=== PATIENT | female | born 1960 | race Caucasian/White ===

== ENCOUNTER → 2018-05-25 20:46 | Outpatient (REF) | payer OTHER, SELFPAY ==
[2018-05-25 21:25] LABS: Anion Gap 9.3 mmol/L (3-11); BUN 11 mg/dL (7-18); CO2 27.7 mmol/L (21.0-32.0); CREATININE 0.55 mg/dL (0.55-1.02); Calcium 8.6 mg/dL (8.5-10.1); Chloride 108 mmol/L (98-107); Glucose 98 mg/dL (70-100); Potassium 4.1 mmol/L (3.5-5.1); Sodium 145 mmol/L (136-145); TSH (W/Ref FT4) 3.35 uIU/mL (0.358-3.74)
== END ==
LOC: NCHCN 20:46
PROVIDERS: PCP Nurse Practitioner Family; Visit Provider Family Medicine
DX: E87.6 Hypokalemia (principal); R53.83 Other fatigue
CPT/HCPCS: 80048; 84443

== ENCOUNTER 2018-07-09 17:50 | Outpatient (REF) | payer OTHER, SELFPAY ==
[2018-07-09 22:47] LABS: Abs Immature Grans 0.01 k/cumm (0.0-0.09); Absolute Basophil Count 0.02 k/cumm (0.0-0.2); Absolute Eosinophil Count 0.38 k/cumm (0.0-0.7); Absolute Lymphocyte Count 1.89 k/cumm (1.2-3.4); Absolute Monocyte Count 0.44 k/cumm (0.11-0.7); Basophils % 0.3; Eosinophils % 6.6; HCT 38.7 % (36.0-46.0); HGB 12.8 g/dL (12.0-15.5); Immature Grans % 0.2; Lymphocytes % 32.9; Mean Corp. HGB Concentration 33.1 g/dL (32.0-36.0); Mean Corpuscular Hemoglobin 30.2 pg (27.0-33.0); Mean Corpuscular Volume 91.3 fL (80-95); Mean Platelet Volume 10.5 fL (8.0-11.0); Monocytes % 7.7; Neutrophils % 52.3; Platelet Count 285 x1000/uL (130-400); RBC 4.24 m/cumm (4.00-5.20); RBC Distribution Width 12.7 % (11.7-14.6); White Blood Cell Count 5.74 k/cumm (4.4-10.8)
[2018-07-09 22:56] LABS: Iron 44 ug/dL (50-175); Total Iron Binding Capacity 358 ug/dL (250-450); Transferrin Sat 12 % (15-50)
[2018-07-09 23:09] LABS: Cholesterol 277 mg/dL (50-200); Ferritin 125 ng/mL (8-388); HDL Cholesterol 77 mg/dL (40-60); LDL CHOLESTEROL 172 mg/dL (<100); Triglyceride 109 mg/dL (30-150)
[2018-07-09 23:31] LABS: FREE T4 0.77 ng/dL (0.76-1.46)
[2018-07-11 12:42] LABS: Hepatitis C Ab w Rflx HCV PCR Negative (NEGAT)
== END 2018-07-09 18:10 ==
LOC: NCHCN 17:50
PROVIDERS: PCP Nurse Practitioner Family; Visit Provider Nurse Practitioner Family
DX: Z00.00 Encounter for general adult medical examination without abnormal findings (principal); E78.5 Hyperlipidemia, unspecified; F41.8 Other specified anxiety disorders; G47.00 Insomnia, unspecified; G47.62 Sleep related leg cramps; J02.9 Acute pharyngitis, unspecified; R53.83 Other fatigue; Z11.59 Encounter for screening for other viral diseases; Z01.84 Encounter for antibody response examination
CPT/HCPCS: 80061; 83721; 86803; 82728; 83540; 83550; 84439; 84443; 85025

== ENCOUNTER 2018-09-24 16:31 | Outpatient (REF) | payer OTHER, SELFPAY ==
[2018-09-24 22:31] LABS: Iron 70 ug/dL (50-175)
[2018-09-24 22:44] LABS: TSH (W/Ref FT4) 4.27 uIU/mL (0.358-3.74)
[2018-09-24 23:23] LABS: FREE T4 0.92 ng/dL (0.76-1.46)
== END 2018-09-24 16:51 ==
LOC: NCHCN 16:31
PROVIDERS: PCP Nurse Practitioner Family; Visit Provider Nurse Practitioner Family
DX: E03.9 Hypothyroidism, unspecified (principal); E61.1 Iron deficiency; M54.16 Radiculopathy, lumbar region
CPT/HCPCS: 83540; 84439; 84443

== ENCOUNTER 2018-11-13 02:21 | Emergency (ER) | payer OTHER, SELFPAY ==
[2018-11-13 02:23] VITALS: BP 112/62; PULSE 70; RESP 22; TEMP 36.3; O2SAT 97
--- NOTE | 2018-11-13 02:44 | ED.GENADUL_ITS ---
Discharge Plan Disposition Patient Disposition: HOME Condition: Good Discharge Details Chief Complaint: RespSymp Clinical Impression: Walking pneumonia Primary Care Provider: Hilary Reeder ED Provider: Taj Flynn Home Meds and New Rx's Prescriptions: New azithromycin 250 mg tablet 250 mg PO DAILY 4 Days Qty: 4 RF: 0 benzonatate [Tessalon Perles] 100 mg capsule 100 mg PO TID PRN (Reason: cough) Qty: 20 RF: 0 prednisone 50 mg tablet 50 mg PO DAILY Qty: 4 RF: 0 No Action OneTouch Ultra Test 1 EACH strip 1 ea Miscellaneous RF: 0 ProAir HFA 8.5 GM HFA aerosol inhaler 1 - 2 puff Inhalation Q4H PRN RF: 0 hydrochlorothiazide 25 MG tablet 50 mg PO DAILY RF: 0 Discharge Instructions Instructions: Bacterial Pneumonia (ED) Additional Instructions: Please take medications as directed. Please use your inhaler every 4 hours for the next 48 hours. If you notice any worsening of your symptoms, or any new symptoms such as vomiting, diarrhea, fever, chills, shortness of breath, chest pain, numbness, weakness, or fainting , please return immediately to the emergency department for reevaluation. Please follow up with your primary care provider as soon as possible for reassessment and reevaluation. As always, it was a pleasure participating in your medical care today. Referrals: Hilary Reeder [Primary Care Provider] - Medical Decision Making This is a pleasant 58-year-old female who presents with 5 days of cough that is worsening. She had notable coughing episode tonight which seemed to significantly worsen her symptoms. Cough is worse when lying flat, improved by sitting upright. Cough is nonproductive. She denies any fever, chills, significant shortness of breath, chest pain. Physical exam demonstrates notable crackles in the right lower lung vick. No evidence of wheezes or rhonchi. Vital signs are reassuring with no signs of hypoxemia or tachypnea. No other abnormalities on physical exam. The patient's risk factors of asthma, and with her past auscultated lung findings am concerned for walking pneumonia. We will give the first dose of azithromycin here as well as prednisone and Tessalon Perles. She will be sent home with 1 Tessalon Perle for the evening, and a prescription to be filled in the morning. Patient signs and symptoms are clinic ally inconsistent at this time with pneumothorax, PE, or cardiac etiology. I have extensively reviewed the treatment plan and discharge instructions with the patient. I have addressed all patient concerns at this time. The patient was made aware of what symptoms to monitor for that would warrant a return to the emergency department. Discussed the plan with the patient, they demonstrate verbal understanding and agreement with our assessment and plan at this time. HPI General Date/Time Provider Initiated Documentation: 11/13/18 02:31 . HPI Narrative: This is a 58-year-old female with a past medical history of asthma, who presents today for evaluation of cough. Cough is been present for the last 5 days. She describes it is nonproductive. Notably worsening over the last 12- 24 hours. She denies any chest pain or shortness of breath. Cough is worse when she lies down, improved by nothing. She has been taking NyQuil and DayQuil with no significant improvement. She does admit to mild fatigue, but denies any exertional chest pain, neck pain, shoulder pain, hemoptysis, fever or chills. She has been taking her inhaler but this is not been improving her symptoms. She denies any other modifying factors. She has no other complaints at this time. Denies PE risk factors such as recent long car rides, immobilization, recent surgery, prior history of DVT or PE, family history of PE or DVT, morbid obesity, exogenous estrogen and smoking, hemoptysis, history of cancer. She denies any history of current tobacco abuse, cardiac disease, or pneumothorax. Related Data Home Medications Medication Instructions Recorded Confirmed OneTouch Ultra Test strip 09/05/16 11/07/18 ProAir HFA 1 - 2 puff INHALATION Q4H PRN 09/05/16 11/13/18 inhaler hydrochlorothiazide 50 mg PO DAILY tab-cap 09/05/16 11/13/18 azithromycin 250 mg PO DAILY 4 Days #4 tab 11/13/18 benzonatate [Tessalon Perles] 100 mg PO TID PRN #20 cap 11/13/18 prednisone 50 mg PO DAILY #4 tab 11/13/18 Previous Rx's Medication Instructions Recorded azithromycin 250 mg PO DAILY 4 Days #4 tab 11/13/18 benzonatate [Tessalon Perles] 100 mg PO TID PRN #20 cap 11/13/18 prednisone 50 mg PO DAILY #4 tab 11/13/18 Allergies Allergy/AdvReac Type Severity Reaction Status Date / Time Penicillins Allergy Unverified 11/07/18 09:38 General Stated Complaint: RespSymp ERLINDA: 4 Review of Systems Review of Systems All systems reviewed & are unremarkable except as noted in HPI and below PFSH Surgical History section Kidney Stone Extraction Vaginal hysterectomy Social History Smoking/Tobacco Use Status: Never Exam Narrative Exam Narrative: 1.Const: Well-nourished, Well-developed, appearing stated age 2.Eyes: PERRL, no conjunctival injection, and symmetrical lids. 3.ENT: Atraumatic external nose and ears. Moist MM. Neck: Symmetric, trachea midline, No thyromegaly. 4.CVS: +S1/S2, No murmurs or gallops. Peripheral pulses 2+ and equal in all extremities. Brisk capillary refill in all extremities. 5.RESP: Unlabored respiratory effort. Notable crackles in the right lower and right middle lobes. No wheezes or rhonchi 6.GI: Soft, Nontender/Nondistended, No hepatosplenomegaly. No guarding or rebound. 7.MSK: Normocephalic/Atraumatic, Extremities w/o deformity or ttp No cyanosis or clubbing, Normal movement of all extremities 8.Skin: Warm, Dry. No rashes or lesions. 9.Neuro: data virtualization consultant II-XII grossly intact. Sensation grossly intact, no focal neurologic deficits. 10.Psych: (AAO) x3. Appropriate mood and affect Course Vital Signs Temperature 36.3 C L 11/13/18 02:23 Pulse 70 11/13/18 02:23 Respiratory Rate 22 11/13/18 02:23 Blood Pressure 112/62 11/13/18 02:23 Pulse Oximetry 97 11/13/18 02:23 Temperature 36.3 C L 11/13/18 02:23 Temperature Source Skin 11/13/18 02:23 Pulse 70 11/13/18 02:23 Respiratory Rate 22 11/13/18 02:23 Respiratory Effort Non-Labored 11/13/18 02:26 Blood Pressure 112/62 11/13/18 02:23 Blood Pressure Position Sitting 11/13/18 02:23 Pulse Oximetry 97 11/13/18 02:23 Oxygen Delivery Method Room Air 11/13/18 02:23 Oxygen Flow Rate 0 11/13/18 02:23 Pain Level 6 11/13/18 02:23
[2018-11-13] MEDS: Benzonatate 100 MG CAP PO ×2 (02:50)
[2018-11-13] MEDS: Azithromycin 250 MG TAB 500 MG PO (02:50)
== END 2018-11-13 02:55 | disposition home or self-care (01) ==
LOC: ER 03:01
PROVIDERS: Emergency Provider Student in an Organized Health Care Education/Training Program; PCP Nurse Practitioner Family
DX: J18.9 Pneumonia, unspecified organism (principal)
CPT/HCPCS: 99283; J7512

== ENCOUNTER 2019-01-01 07:05 | Outpatient (CLI) | payer OTHER, SELFPAY ==
[2019-01-01 07:37] LABS: Absolute Basophil Count 0.02 k/cumm (0.0-0.2); Absolute Eosinophil Count 0.23 k/cumm (0.0-0.7); Absolute Lymphocyte Count 1.24 k/cumm (1.2-3.4); Absolute Monocyte Count 0.33 k/cumm (0.11-0.7); Absolute Neutrophil Count 0.96 k/cumm (1.2-6.7); Basophils % 0.7; Eosinophils % 8.3; HCT 37.2 % (36.0-46.0); Lymphocytes % 44.6; Mean Corp. HGB Concentration 32.3 g/dL (32.0-36.0); Mean Corpuscular Hemoglobin 29.9 pg (27.0-33.0); Mean Corpuscular Volume 92.8 fL (80-95); Mean Platelet Volume 10.3 fL (8.0-11.0); Monocytes % 11.9; Neutrophils % 34.5; Platelet Count 209 x1000/uL (130-400); RBC 4.01 m/cumm (4.00-5.20); RBC Distribution Width 12.9 % (11.7-14.6); White Blood Cell Count 2.78 k/cumm (4.4-10.8)
[2019-01-01 07:43] LABS: Anion Gap 7.6 mmol/L (3-11); BUN 22 mg/dL (7-18); CO2 29.4 mmol/L (21.0-32.0); CREATININE 0.63 mg/dL (0.55-1.02); Calcium 8.5 mg/dL (8.5-10.1); Chloride 104 mmol/L (98-107); Glucose 105 mg/dL (70-100); Magnesium 1.9 mg/dL (1.8-2.4); Potassium 4.1 mmol/L (3.5-5.1); Sodium 141 mmol/L (136-145)
[2019-01-01 07:53] LABS: Troponin I < 0.02 ng/mL (0.00-0.06)
[2019-01-01 08:16] LABS: D-Dimer 329 ng/mlFEU (<500)
[2019-01-01 08:56] LABS: Diff Comment Diff Reviewed; RBC Morphology Normal
== END 2019-01-01 07:25 ==
PROVIDERS: PCP Nurse Practitioner Family; Visit Provider Nurse Practitioner Family
DX: R07.89 Other chest pain (principal); R06.02 Shortness of breath
CPT/HCPCS: 36415; 80048; 83735; 84484; 85025; 85379

== ENCOUNTER 2019-01-01 13:26 | Outpatient (CLI) | payer OTHER, SELFPAY ==
--- NOTE | 2019-01-01 13:41 | DI.RAD_ITS ---
SYMPTOMS/DIAGNOSIS: CHEST HEAVINESS, SOB, ASTHMA, R07.89, R06.02, J45.20 PA AND LATERAL CHEST: The heart is normal in size. The lungs are clear. The mediastinal structures and pleura appear intact. CONCLUSION: Normal chest. No evidence of acute cardiopulmonary disease.
== END 2019-01-01 13:46 ==
PROVIDERS: PCP Nurse Practitioner Family; Visit Provider Nurse Practitioner Family
DX: R07.89 Other chest pain (principal); R06.02 Shortness of breath; J45.20 Mild intermittent asthma, uncomplicated
CPT/HCPCS: 71046

== ENCOUNTER 2019-01-14 00:05 | Outpatient (CLI) | payer OTHER, SELFPAY ==
--- NOTE | 2019-01-14 08:30 | ETT_ITS ---
*[facility]* *[facility]* [address] [place] [address] Stress Electrocardiography Ebenezer protocol Date of study: 01/14/2019 *PATIENT PRESENTATION* Height: 165.1cm (65in) Blood Pressure: Weight: 55.5kg (122lb) BSA: 1.59m^2 Referring physician: Hilary Reeder Aprn Ordering physician: Hilary Reeder Aprn Impressions: Normal study after maximal exercise. Summary: 1. Stress ECG conclusions: The stress ECG is negative. Lin treadmill score: 11. This score predicts a low risk of cardiac events. 2. Stress: The target heart rate was achieved. Indication: R07.89. History: REASON FOR VISIT: PT REPORTS CHEST TIGHTNESS, ASSOCIATED WITH HER RECENT PNEUMONIA. PT STILL IS EXPERIENCING INTERMITTENT CHEST TIGHTNESS. LAST EPISODE WAS THIS PAST MONDAY SHE LOCATES MID STERNAL REGION, NON RADIATING, IT WAS ASSOCIATING WITH HEARTBURN SYMPTOMS. NO CHEST PAIN UPON ARRIVAL TODAY. PT PHYSICALLY ACTIVE SHE WALKS AT LEAST 30 MINUTES DAILY. PMH: Asthma. Risk factors: SISTER HAD RECENT CABG SURGERY FOR CORONARY BLOCKAGES AT AGE 70 YEARS. Family history of coronary artery disease. Diabetes mellitus. Dyslipidemia. Cholesterol: 277mg/dl. HDL: 77mg/dl. LDL: 172mg/dl. Triglycerides: 109mg/dl. ALLERGIES: PENICILLINS. MEDICATIONS: HYDROCHLOROTHIAZIDE 50 MG DAILY. ALBUTEROL SULFATE 1-2 PUFFS Q 4 HRS PRN. Protocol: Ebenezer protocol. Baseline ECG: SINUS RHYTHM. HR 62 BPM. T-WAVE INVERSIONS IN LEADS V1, V2 & V3. FLAT T WAVES IN V4. Stress protocol: + +---+ + !Stage !HR !BP (mmHg) ! + +---+ + !Baseline supine !62 !110/68 (82)! + +---+ + !Baseline standing !62 !100/62 (75)! + +---+ + !Stage I; 1.7mph, 10degrees; 3 min !103!110/62 (78)! + +---+ + !Stage II; 2.5mph, 12degrees; 3 min !108!112/60 (77)! + +---+ + !Stage III; 3.4mph, 14degrees; 3 min!128!120/72 (88)! + +---+ + !Stage IV; 4.2mph, 16degrees; 3 min !---!120/68 (85)! + +---+ + !Peak stress !174! ! + +---+ + !Recovery; 1 min !110!132/62 (85)! + +---+ + !Recovery; 3 min !91 !118/70 (86)! + +---+ + !Recovery; 6 min !87 !100/62 (75)! + +---+ + * Stress results: Maximal heart rate during stress was 174bpm (108% of maximal predicted heart rate). The maximal predicted heart rate was 161bpm. The target heart rate was achieved. The rate-pressure product for the peak heart rate and blood pressure was 92008sb Hg/min. Stress ECG: TREADMILL PORTION OF STRESS TEST ENDED IN 13 MINUTES DUE TO FATIGUE NORMAL HEART RATE AND BLOOD PRESSURE RESPONSE TO EXERCISE MAX HR = 174 % OF TARGET = 108 NO ECTOPY APPROXIMATE METS ACHIEVED = 14.17 NO ANGINA NO SIGINIFICANT ST SEGMENT CHANGES ABOVE AVERAGE FUNCTIONAL CAPACITY FOR EXERCISE. The stress ECG is negative. Lin treadmill score: 11. This score predicts a low risk of cardiac events. Study data: Jorge Whiteside MD supervised and was readily available during the procedure. This study was interpreted by [facility]. Study status: Routine. Consent: The risks, benefits, and alternatives to the procedure were explained to the patient and informed consent was obtained. Procedure: Initial setup. A baseline ECG was recorded. Surface ECG leads and manual cuff blood pressure measurements were monitored. Heart sounds: Normal. Lung sounds: Normal. Treadmill exercise testing was performed using the Ebenezer protocol. Study completion: The patient tolerated the procedure well and was discharged from the lab. Discharge: The patient left the laboratory in stable condition. Birthdate: Patient birthdate: 1960. Sex: Gender: female. Study date: Study date: 01/14/2019. Study time: 00:01 AM. Electronically signed by Jorge Whiteside MD 01/14/2019 12:09
== END 2019-01-14 00:25 ==
PROVIDERS: PCP Nurse Practitioner Family; Visit Provider Nurse Practitioner Family
DX: R07.89 Other chest pain (principal)
CPT/HCPCS: 93017

== ENCOUNTER 2019-01-14 02:22 | Outpatient (CLI) | payer OTHER, SELFPAY ==
--- NOTE | 2019-01-21 11:57 | HOLTER_ITS ---
DATE OF DICTATION: January 21, 2019 48-HOUR STUDY Baseline rhythm sinus. Rare single PAC. No atrial fibrillation or SVT. Rare single PVC. Rare couplet. No VT. No bradycardia. SYMPTOMS: Headache noted six times during sinus rhythm 65-109 bpm. Heart racing noted once during sinus rhythm 83 bpm. Lightheadedness noted once during sinus rhythm 64 bpm. Heartburn noted twice during sinus rhythm 68, 81 bpm, no ST-T wave changes. Average heart rate 71 bpm.
== END 2019-01-14 02:42 ==
PROVIDERS: PCP Nurse Practitioner Family; Visit Provider Nurse Practitioner Family
DX: R07.89 Other chest pain (principal); I49.1 Atrial premature depolarization; I49.3 Ventricular premature depolarization
CPT/HCPCS: 93225

== ENCOUNTER 2019-01-18 09:05 | Outpatient (CLI) | payer OTHER, SELFPAY | END 2019-01-18 09:25 | PROVIDERS: PCP Nurse Practitioner Family; Visit Provider Nurse Practitioner Family | DX: R07.89 Other chest pain (principal); I49.1 Atrial premature depolarization; I49.3 Ventricular premature depolarization | CPT/HCPCS: 93226 ==

== ENCOUNTER 2019-02-11 17:45 | Outpatient (REF) | payer OTHER, SELFPAY ==
[2019-02-11 21:09] LABS: Abs Immature Grans 0.01 k/cumm (0.0-0.09); Absolute Basophil Count 0.02 k/cumm (0.0-0.2); Absolute Eosinophil Count 0.47 k/cumm (0.0-0.7); Absolute Lymphocyte Count 1.87 k/cumm (1.2-3.4); Absolute Monocyte Count 0.33 k/cumm (0.11-0.7); Basophils % 0.4; Eosinophils % 8.9; HCT 39.5 % (36.0-46.0); HGB 13.2 g/dL (12.0-15.5); Immature Grans % 0.2; Lymphocytes % 35.3; Mean Corp. HGB Concentration 33.4 g/dL (32.0-36.0); Mean Corpuscular Hemoglobin 30.2 pg (27.0-33.0); Mean Corpuscular Volume 90.4 fL (80-95); Mean Platelet Volume 10.9 fL (8.0-11.0); Monocytes % 6.2; Platelet Count 283 x1000/uL (130-400); RBC 4.37 m/cumm (4.00-5.20); RBC Distribution Width 12.6 % (11.7-14.6)
[2019-02-11 21:16] LABS: Iron 80 ug/dL (50-175)
[2019-02-11 21:26] LABS: TSH (W/Ref FT4) 3.98 uIU/mL (0.358-3.74)
[2019-02-11 21:52] LABS: FREE T4 0.72 ng/dL (0.76-1.46)
== END 2019-02-11 18:05 ==
LOC: NCHCN 17:45
PROVIDERS: PCP Nurse Practitioner Family; Visit Provider Nurse Practitioner Family
DX: R07.89 Other chest pain (principal); R06.02 Shortness of breath; E03.9 Hypothyroidism, unspecified; E61.1 Iron deficiency; R53.83 Other fatigue; F41.8 Other specified anxiety disorders; K21.9 Gastro-esophageal reflux disease without esophagitis; J45.20 Mild intermittent asthma, uncomplicated
CPT/HCPCS: 83540; 84439; 84443; 85025

== ENCOUNTER 2019-05-13 18:10 | Outpatient (REF) | payer OTHER, SELFPAY ==
[2019-05-13 21:52] LABS: Anion Gap 10.1 mmol/L (3-11); BUN 23 mg/dL (7-18); CO2 28.9 mmol/L (21.0-32.0); CREATININE 0.61 mg/dL (0.55-1.02); Calcium 9.7 mg/dL (8.5-10.1); Chloride 103 mmol/L (98-107); Glucose 94 mg/dL (70-100); Potassium 3.7 mmol/L (3.5-5.1); Sodium 142 mmol/L (136-145)
[2019-05-13 22:30] LABS: FREE T4 0.62 ng/dL (0.76-1.46)
== END 2019-05-13 18:30 ==
LOC: NCHCN 18:10
PROVIDERS: PCP Nurse Practitioner Family; Visit Provider Nurse Practitioner Family
DX: R10.9 Unspecified abdominal pain (principal); Z87.442 Personal history of urinary calculi
CPT/HCPCS: 80048; 84439; 84443

== ENCOUNTER 2019-06-25 16:09 | Outpatient (REF) | payer OTHER, SELFPAY ==
[2019-06-25 22:11] LABS: TSH (W/Ref FT4) 2.61 uIU/mL (0.36-3.74)
== END 2019-06-25 16:29 ==
LOC: NCHCN 16:09
PROVIDERS: PCP Nurse Practitioner Family; Visit Provider Nurse Practitioner Family
DX: E03.9 Hypothyroidism, unspecified (principal)
CPT/HCPCS: 84443

== ENCOUNTER 2019-08-13 22:46 | Outpatient (REF) | payer OTHER, SELFPAY | END 2019-08-13 23:06 | LOC: NCHCN 22:46 | PROVIDERS: PCP Nurse Practitioner Family; Visit Provider Nurse Practitioner Family | DX: R30.9 Painful micturition, unspecified (principal); R35.0 Frequency of micturition | CPT/HCPCS: 87077; 87086; 87186 ==

== ENCOUNTER 2020-05-11 17:22 | Outpatient (REF) | payer OTHER, SELFPAY ==
[2020-05-11 22:07] LABS: Absolute Basophil Count 0.02 k/cumm (0.0-0.2); Absolute Eosinophil Count 0.32 k/cumm (0.0-0.7); Absolute Lymphocyte Count 1.57 k/cumm (1.2-3.4); Absolute Monocyte Count 0.32 k/cumm (0.11-0.7); Absolute Neutrophil Count 2.69 k/cumm (1.2-6.7); Basophils % 0.4; Eosinophils % 6.5; HCT 39.2 % (36.0-46.0); HGB 13.1 g/dL (12.0-15.5); Lymphocytes % 31.9; Mean Corp. HGB Concentration 33.4 g/dL (32.0-36.0); Mean Corpuscular Hemoglobin 30.2 pg (27.0-33.0); Mean Corpuscular Volume 90.3 fL (80-95); Mean Platelet Volume 11.1 fL (8.0-11.0); Monocytes % 6.5; Neutrophils % 54.7; Platelet Count 260 x1000/uL (130-400); RBC 4.34 m/cumm (4.00-5.20); RBC Distribution Width 12.5 % (11.7-14.6); White Blood Cell Count 4.92 k/cumm (4.4-10.8)
[2020-05-11 22:41] LABS: Hemoglobin A1C 5.5 % (3.8-5.6)
[2020-05-11 22:51] LABS: Iron 54 ug/dL (50-170); Total Iron Binding Capacity 323 ug/dL (250-450); Transferrin Sat 17 % (15-50)
[2020-05-11 22:52] LABS: Anion Gap 9.8 mmol/L (3-11); BUN 14 mg/dL (7-18); CO2 28.2 mmol/L (21.0-32.0); CREATININE 0.59 mg/dL (0.55-1.02); Calcium 9.4 mg/dL (8.5-10.1); Chloride 102 mmol/L (98-107); Glucose 90 mg/dL (74-106); Potassium 3.8 mmol/L (3.5-5.1); Sodium 140 mmol/L (136-145); TSH (W/Ref FT4) 3.33 uIU/mL (0.36-3.74)
[2020-05-13 11:17] LABS: HIV-1/2 Ag & Ab Screen Negative (Negative)
== END 2020-05-11 17:42 ==
LOC: NCHCN 17:22
PROVIDERS: PCP Nurse Practitioner Family; Visit Provider Nurse Practitioner Family
DX: M54.9 Dorsalgia, unspecified (principal); R42 Dizziness and giddiness; N39.0 Urinary tract infection, site not specified; E03.9 Hypothyroidism, unspecified; F41.8 Other specified anxiety disorders; R53.83 Other fatigue; Z80.0 Family history of malignant neoplasm of digestive organs; Z00.00 Encounter for general adult medical examination without abnormal findings
CPT/HCPCS: 80048; 87389; 83036; 83540; 83550; 84443; 85025

== ENCOUNTER 2020-06-30 06:12 | Day surgery (SDC) | payer OTHER, SELFPAY ==
[2020-06-30 06:20] VITALS: BP 106/62; PULSE 61; RESP 17; TEMP 36.3; O2SAT 100
--- NOTE | 2020-06-30 07:19 | W.PM.DSUDISC ---
Discharge Plan Disposition Patient Disposition: HOME Condition: Good Discharge Details Reason For Visit: Right trigger thumb Attending Provider: Trever Mcdonald Primary Care Provider: Hilary Reeder Home Meds and New Rx's Prescriptions: Continued levothyroxine 25 mcg capsule 25 mcg PO DAILY RF: 0 albuterol sulfate [ProAir HFA] 8.5 GM HFA aerosol inhaler 1 - 2 puff Inhalation Q4H PRN RF: 0 hydrochlorothiazide 25 MG tablet 50 mg PO DAILY RF: 0 Discharge Instructions Stand Alone Forms: Tamara Bass Finger Release Referrals: Trever Mcdonald MD [ [facility] STAFF PHYSICIAN] - Activity:: Activity as Tolerated Remove Dressings/Wound Care:: 48 hours Shower/Bathe:: 48 hours Diet:: As Tolerated Discharge Orders Discharge Orders: Discharge Order (Routine); Ordered 06/30/20 Ordered By: Marzena Hinton DS: Diagnosis Discharge Diagnosis (1) Trigger finger of right thumb: Status: Acute
[2020-06-30] MEDS: Sodium Bicarbonate 50 MEQ/50 ML VIAL (07:28)
[2020-06-30] MEDS: Lidocaine 1% Multi-Dose 50 ML VIAL (07:28)
--- NOTE | 2020-06-30 07:54 | W.PM.OP ---
Date of service: 06/30/20 Time of Service: 07:54 Operative Note Operative Note DATE OF PROCEDURE: 06/30/20 PRE-OP DIAGNOSIS: Right Thumb Trigger Finger POST-OP DIAGNOSIS: same PROCEDURE: Trigger Finger Release - Right Thumb SURGEON: Trever Mcdonald ANESTHESIA: local ESTIMATED BLOOD LOSS: 5 PATHOLOGY: none sent COMPLICATIONS: None Patient was transported to: same day Patient's condition: stable Indications: I have seen Nica in clinic for symptoms of a trigger finger. The catching, clicking, locking, and pain limited function. The diagnosis of trigger finger was evident. The symptoms had not responded to conservative measures. I discussed trigger finger release with the patient. I reviewed the risks of the procedure to include, but not limited to, bleeding, infection, pain, stiffness, incomplete release, damage to nerves or vessels, continued catching, recurrence. Despite these risks, the patient elected to proceed. Findings: There was a tightened A1 trupti which was released. The flexor tendons were inspected and the patient was able to move the finger without any catching, clicking, or locking. Procedure Description: Nica was greeted in the preoperative holding area where the correct side was identified and marked. The consent was reviewed with the patient and signed. All questions were answered. Nica was taken back to the operating room. The patient was placed into the supine position on the operating room table with the right arm on an arm board. All bony prominences were well padded. No prophylactic antibiotics were administered since this was a clean, elective hand surgical case. The right arm was then prepped with Chloraprep and draped in a standard fashion with stockinette and extremity drape. A timeout to confirm correct identity, side and site, procedure, allergies, anesthesia, and medical concerns was performed. The surgical site was marked as a longitudinal incision directly over the A1 trupti of the involved digit. This was confirmed with palpation during finger flexion. This area, overlying the metacarpal head, was then anesthetized with 1% Lidocaine. The patient tolerated this well and once the anesthetic had setup, the procedure began. A longitudinal incision was made through skin only, approximately 1cm. The deep tissues were dissected bluntly. Once the A1 trupti and flexor tendons were identified the soft tissue including neurovascular structures were retracted medially and laterally. There were no crossing structures over the A1 trupti. The proximal edge of the trupti was identified and the trupti was incised with tenotomy scissors. There was a release of the tendon once this was fully released. The tendon was then removed from the wound and inspected. Excess synovium was resected. The tendon was then returned and the patient was asked to move the finger into deep flexion and back to extension. There was no recreation of the pre-operative symptoms. The hand was then once more inspected for any A0 trupti or area of possible constriction. The wound was then irrigated and the skin was closed with a 4-0 Nylon. This was dressed with gauze and a Conform dressing. The patient tolerated the procedure well and was returned to the Same Day Surgery area in a stable condition suffering no known complication.
== END 2020-06-30 08:05 | disposition home or self-care (01) ==
PROVIDERS: PCP Nurse Practitioner Family; Visit Provider Student in an Organized Health Care Education/Training Program
PROC: (CPT 26055; principal; 2020-06-30 07:30)
DX: M65.311 Trigger thumb, right thumb (principal)
CPT/HCPCS: 26055

== ENCOUNTER 2020-12-07 21:33 | Outpatient (REF) | payer OTHER, SELFPAY ==
[2020-12-09 12:55] LABS: COVID-19 RT-PCR UVMMC Result Negative (Negative)
== END 2020-12-07 21:34 | disposition home or self-care (01) ==
LOC: NCHCN 21:33
PROVIDERS: PCP Nurse Practitioner Family; Visit Provider Nurse Practitioner Family
DX: Z20.822 Contact with and (suspected) exposure to COVID-19 (principal)
CPT/HCPCS: U0003

== ENCOUNTER 2021-06-14 10:18 | Outpatient (REF) | payer OTHER, SELFPAY ==
[2021-06-14 15:31] LABS: Abs Immature Grans 0.01 10^3/uL (0.0-0.06); Absolute Basophil Count 0.04 10^3/uL (0.0-0.2); Absolute Eosinophil Count 0.32 10^3/uL (0.0-0.7); Absolute Lymphocyte Count 1.38 10^3/uL (1.2-3.4); Absolute Neutrophil Count 2.79 10^3/uL (1.2-6.7); Basophils % 0.8; Eosinophils % 6.6; HCT 40.2 % (36.0-46.0); HGB 13.1 g/dL (11.2-15.7); Immature Grans % 0.2; Lymphocytes % 28.5; MCH 29.5 pg (27.0-33.0); MCHC 32.6 % (32.0-36.0); MCV 90.5 fL (80-95); MPV 10.7 fL (8.0-11.0); Monocytes % 6.2; Neutrophils % 57.7; Nucleated RBC 0 %; Platelet Count 274 10^3/uL (130-400); RBC 4.44 10^6/uL (3.93-5.22); RDW 11.9 % (11.7-14.6); RDW-SD 39.3 fL; WBC 4.84 10^3/uL (4.4-10.8)
[2021-06-14 15:46] LABS: Iron 111 ug/dL (50-170); Total Iron Binding Capacity 331 ug/dL (250-450); Transferrin Sat 34 % (15-50)
[2021-06-14 16:07] LABS: Anion Gap 9.2 mmol/L (3-11); BUN 11 mg/dL (7-18); CO2 29.8 mmol/L (21.0-32.0); CREATININE 0.7 mg/dL (0.55-1.02); Calcium 9.3 mg/dL (8.5-10.1); Calculated LDL 187 mg/dL (<100); Chloride 103 mmol/L (98-107); Cholesterol 269 mg/dL (<200); Ferritin 144 ng/mL (8-252); Glucose 92 mg/dL (74-106); HDL Cholesterol 69 mg/dL (40-60); Potassium 4.2 mmol/L (3.5-5.1); Sodium 142 mmol/L (136-145); TSH (W/Ref FT4) 5.47 uIU/mL (0.36-3.74); Triglyceride 68 mg/dL (<150)
[2021-06-14 16:57] LABS: FREE T4 0.92 ng/dL (0.76-1.46)
[2021-06-15 17:57] LABS: COVID-19 RT-PCR UVMMC Result Negative (Negative)
== END 2021-06-14 10:19 | disposition home or self-care (01) ==
LOC: NCHCN 10:18
PROVIDERS: PCP Nurse Practitioner Family; Visit Provider Nurse Practitioner Family
DX: E61.1 Iron deficiency (principal); R73.03 Prediabetes; Z00.00 Encounter for general adult medical examination without abnormal findings; E03.9 Hypothyroidism, unspecified; R61 Generalized hyperhidrosis; Z13.220 Encounter for screening for lipoid disorders; J02.9 Acute pharyngitis, unspecified; Z20.822 Contact with and (suspected) exposure to COVID-19
CPT/HCPCS: 80048; 80061; U0003; 82728; 83540; 83550; 84439; 84443; 85025

== ENCOUNTER 2021-11-30 18:59 | Outpatient (REF) | payer OTHER, SELFPAY | END 2021-11-30 19:00 | disposition home or self-care (01) | LOC: NCHCN 18:59 | PROVIDERS: PCP Nurse Practitioner Family; Visit Provider Nurse Practitioner Family | DX: R30.0 Dysuria (principal) | CPT/HCPCS: 87086 ==

== ENCOUNTER 2021-12-06 19:56 | Outpatient (REF) | payer OTHER, SELFPAY ==
[2021-12-08 12:29] LABS: Chlamydia Result Negative (Negative); GC Result Negative (Negative)
== END 2021-12-06 19:57 | disposition home or self-care (01) ==
LOC: NCHCN 19:56
PROVIDERS: PCP Nurse Practitioner Family; Visit Provider Nurse Practitioner Family
DX: R10.32 Left lower quadrant pain (principal); R30.0 Dysuria
CPT/HCPCS: 87491; 87591; 87086; 87480; 87510; 87660

== ENCOUNTER 2021-12-13 12:45 | Outpatient (REF) | payer OTHER, SELFPAY ==
[2021-12-13 15:52] LABS: TSH (W/Ref FT4) 2.88 uIU/mL (0.36-3.74)
== END 2021-12-13 12:46 | disposition home or self-care (01) ==
LOC: NCHCN 12:45
PROVIDERS: PCP Nurse Practitioner Family; Visit Provider Nurse Practitioner Family
DX: E03.9 Hypothyroidism, unspecified (principal)
CPT/HCPCS: 84443

== ENCOUNTER 2022-06-17 08:51 | Outpatient (REF) | payer OTHER, SELFPAY ==
[2022-06-17 19:13] LABS: TSH (W/Ref FT4) 4.28 uIU/mL (0.36-3.74)
[2022-06-17 19:31] LABS: FREE T4 0.99 ng/dL (0.76-1.46)
== END 2022-06-17 08:52 | disposition home or self-care (01) ==
LOC: NCHCN 08:51
PROVIDERS: PCP Nurse Practitioner Family; Visit Provider Nurse Practitioner Family
DX: E03.9 Hypothyroidism, unspecified (principal); R53.83 Other fatigue; Z00.00 Encounter for general adult medical examination without abnormal findings; J45.20 Mild intermittent asthma, uncomplicated; K21.9 Gastro-esophageal reflux disease without esophagitis; Z87.442 Personal history of urinary calculi; R30.0 Dysuria
CPT/HCPCS: 84439; 84443; 87086

== ENCOUNTER 2023-07-05 08:56 | Outpatient (REF) | payer OTHER, SELFPAY ==
[2023-07-05 17:35] LABS: Anion Gap 3.9 mmol/L (3-11); BUN 21 mg/dL (7-18); CO2 32.1 mmol/L (21.0-32.0); CREATININE 0.6 mg/dL (0.55-1.02); Calcium 9.4 mg/dL (8.5-10.1); Calculated LDL 188 mg/dL (<100); Chloride 104 mmol/L (98-107); Cholesterol 271 mg/dL (<200); Glucose 96 mg/dL (74-106); HDL Cholesterol 73 mg/dL (40-60); Potassium 5.3 mmol/L (3.5-5.1); Sodium 140 mmol/L (136-145); TSH (W/Ref FT4) 5.49 uIU/mL (0.36-3.74); Triglyceride 51 mg/dL (<150)
[2023-07-05 18:07] LABS: FREE T4 0.89 ng/dL (0.76-1.46)
== END 2023-07-05 08:57 | disposition home or self-care (01) ==
LOC: NCHCN 08:56
PROVIDERS: PCP Nurse Practitioner Family; Visit Provider Nurse Practitioner Family
DX: Z00.00 Encounter for general adult medical examination without abnormal findings (principal); E03.9 Hypothyroidism, unspecified; E78.5 Hyperlipidemia, unspecified; K21.9 Gastro-esophageal reflux disease without esophagitis; J45.20 Mild intermittent asthma, uncomplicated
CPT/HCPCS: 80048; 80061; 84439; 84443

== ENCOUNTER 2023-10-30 15:17 | Outpatient (REF) | payer OTHER, SELFPAY ==
[2023-10-30 16:00] LABS: Potassium 4.1 mmol/L (3.5-5.1); TSH (W/Ref FT4) 4.72 uIU/mL (0.36-3.74)
[2023-10-30 16:42] LABS: FREE T4 0.92 ng/dL (0.76-1.46)
== END 2023-10-30 15:18 | disposition home or self-care (01) ==
LOC: NCHCN 15:17
PROVIDERS: PCP Nurse Practitioner Family; Visit Provider Nurse Practitioner Family
DX: E03.9 Hypothyroidism, unspecified (principal)
CPT/HCPCS: 84132; 84439; 84443

== ENCOUNTER 2024-02-05 14:47 | Outpatient (REF) | payer OTHER, SELFPAY ==
[2024-02-05 15:20] LABS: Calculated LDL 195 mg/dL (<100); Cholesterol 273 mg/dL (<200); HDL Cholesterol 69 mg/dL (40-60); TSH (W/Ref FT4) 4.12 uIU/mL (0.36-3.74); Triglyceride 45 mg/dL (<150)
== END 2024-02-05 14:48 | disposition home or self-care (01) ==
LOC: NCHCN 14:47
PROVIDERS: PCP Nurse Practitioner Family; Visit Provider Nurse Practitioner Family
DX: E78.5 Hyperlipidemia, unspecified (principal); E03.9 Hypothyroidism, unspecified
CPT/HCPCS: 80061; 84439; 84443

== ENCOUNTER 2024-06-13 01:31 | Outpatient (CLI) | payer OTHER, SELFPAY ==
--- NOTE | 2024-06-13 | DI.DEXA_ITS ---
Exam(s) XR DEXA BONE DENSITY W/WO MAGDALENA EXAM: XR DEXA BONE DENSITY W/WO MAGDALENA CLINICAL HISTORY: KIDNEY STONES, N20.0 MENOPAUSE, Z78.0, HYPOTHYROIDISM, E03.8 TECHNIQUE: [employer] Horizon C densitometer analysis of left hip, lumbar spine and left forearm. Lat eral survey image of the thoracic and lumbar spine. COMPARISON: No exams were available for comparison FINDINGS: Lateral view of the thoracic and lumbar spine shows no evidence of compression fractures. Bone mineral density measurements of the lumbar spine correspond to a total T-score of -3.0, in the o steoporotic range. Bone mineral density measurements of the left hip correspond to a total T-score of -1.5. The femora l neck T-score is -2.1, in the osteopenic range.. Theleft forearm bone mineral density measurements correspond to a T-score of the distal 3rd of -2.7, in the osteoporotic range.. IMPRESSION: Osteoporosis of the spine and forearm. Osteopenia of the hip.
== END 2024-06-13 01:51 ==
LOC: DI 01:31
PROVIDERS: PCP Nurse Practitioner Family; Visit Provider Internal Medicine Endocrinology, Diabetes & Metabolism
DX: N20.0 Calculus of kidney (principal); E03.8 Other specified hypothyroidism; Z78.0 Asymptomatic menopausal state; M81.0 Age-related osteoporosis without current pathological fracture; M85.852 Other specified disorders of bone density and structure, left thigh
CPT/HCPCS: 77080

== ENCOUNTER 2024-07-12 02:46 | Outpatient (CLI) | payer OTHER, SELFPAY ==
[2024-07-12 08:59] LABS: Abs Immature Grans 0.02 10^3/uL (0.0-0.06); Absolute Basophil Count 0.02 10^3/uL (0.0-0.2); Absolute Eosinophil Count 0.17 10^3/uL (0.0-0.7); Absolute Lymphocyte Count 1.61 10^3/uL (1.2-3.4); Absolute Monocyte Count 0.35 10^3/uL (0.1-0.8); Absolute Neutrophil Count 1.94 10^3/uL (1.2-6.7); Basophils % 0.5 %; Eosinophils % 4.1 %; HCT 37.4 % (36.0-46.0); HGB 12.6 g/dL (11.2-15.7); Immature Grans % 0.5 %; Lymphocytes % 39.2 %; MCH 30.1 pg (27.0-33.0); MCHC 33.7 % (32.0-36.0); MCV 90 fL (80-95); Monocytes % 8.5 %; Neutrophils % 47.2 %; Platelet Count 232 10^3/uL (130-400); RBC 4.18 10^6/uL (3.93-5.22); RDW 11.9 % (11.7-14.6); RDW-SD 38.5 fL; WBC 4.11 10^3/uL (4.4-10.8)
[2024-07-12 09:40] LABS: ALT 21 U/L (14-59); AST 14 U/L (15-37); Albumin 3.6 g/dL (3.4-5.0); Alkaline Phosphatase 81 U/L (46-116); Anion Gap 5.5 mmol/L (3-11); BUN 12 mg/dL (7-18); Bilirubin, Total 0.64 mg/dL (0.2-1.0); CO2 29.5 mmol/L (21.0-32.0); CREATININE 0.7 mg/dL (0.55-1.02); Calcium 8.8 mg/dL (8.5-10.1); Chloride 104 mmol/L (98-107); Estimated GFR 96.52 (mL/min/1.73m2); Glucose 97 mg/dL (74-106); Magnesium 1.6 mg/dL (1.8-2.4); PHOSPHORUS 3.7 mg/dL (2.6-4.7); Potassium 3.8 mmol/L (3.5-5.1); Sodium 139 mmol/L (136-145)
[2024-07-12 09:54] LABS: LDL CHOLESTEROL 155 mg/dL (<100); Vitamin D 25 Total 25.9 ng/mL (30-100)
== END 2024-07-12 02:47 | disposition home or self-care (01) ==
LOC: LBO 02:46
PROVIDERS: Internal Medicine Endocrinology, Diabetes & Metabolism; PCP Nurse Practitioner Family; Visit Provider Nurse Practitioner Family
DX: N20.0 Calculus of kidney (principal); R73.03 Prediabetes; E03.8 Other specified hypothyroidism; R41.89 Other symptoms and signs involving cognitive functions and awareness; E78.00 Pure hypercholesterolemia, unspecified; Z78.0 Asymptomatic menopausal state; M81.8 Other osteoporosis without current pathological fracture; E55.9 Vitamin D deficiency, unspecified; R58 Hemorrhage, not elsewhere classified
CPT/HCPCS: 36415; 80053; 82306; 83721; 83735; 84100; 84443; 85025

== ENCOUNTER 2024-11-25 16:46 | Outpatient (REF) | payer MEDICARE, SELFPAY ==
[2024-11-25 21:30] LABS: Abs Immature Grans 0.01 10^3/uL (0.0-0.06); Absolute Basophil Count 0.03 10^3/uL (0.0-0.2); Absolute Eosinophil Count 0.14 10^3/uL (0.0-0.7); Absolute Lymphocyte Count 1.82 10^3/uL (1.2-3.4); Absolute Monocyte Count 0.35 10^3/uL (0.1-0.8); Absolute Neutrophil Count 3.62 10^3/uL (1.2-6.7); Basophils % 0.5 %; Eosinophils % 2.3 %; HCT 37.6 % (36.0-46.0); HGB 12.6 g/dL (11.2-15.7); Immature Grans % 0.2 %; Lymphocytes % 30.5 %; MCH 30.4 pg (27.0-33.0); MCHC 33.5 % (32.0-36.0); MCV 91 fL (80-95); MPV 10.2 fL (8.0-11.0); Monocytes % 5.9 %; Neutrophils % 60.6 %; Platelet Count 241 10^3/uL (130-400); RBC 4.14 10^6/uL (3.93-5.22); WBC 5.97 10^3/uL (4.4-10.8)
[2024-11-25 21:45] LABS: Hemoglobin A1C 5.7 % (<5.7)
[2024-11-25 21:57] LABS: Calculated LDL 192 mg/dL (<100); Cholesterol 291 mg/dL (<200); HDL Cholesterol 80 mg/dL (40-60); TSH (W/Ref FT4) 1.84 uIU/mL (0.36-3.74); Triglyceride 99 mg/dL (<150)
== END 2024-11-25 16:47 | disposition home or self-care (01) ==
LOC: NCHCN 16:46
PROVIDERS: PCP Nurse Practitioner Family; Visit Provider Nurse Practitioner Family
DX: E78.5 Hyperlipidemia, unspecified (principal); R73.03 Prediabetes
CPT/HCPCS: 80061; 82306; 83036; 84443; 85025

== ENCOUNTER 2025-05-26 16:06 | Outpatient (REF) | payer MEDICARE, SELFPAY ==
[2025-05-26 21:45] LABS: Anion Gap 9.1 mmol/L (3-11); BUN 14 mg/dL (7-18); CO2 28.9 mmol/L (21.0-32.0); Calcium 9.5 mg/dL (8.5-10.1); Chloride 100 mmol/L (98-107); Estimated GFR 104.02 (mL/min/1.73m2); Glucose 103 mg/dL (74-106); Potassium 3.1 mmol/L (3.5-5.1); Sodium 138 mmol/L (136-145); Vitamin D 25 Total 35 ng/mL (30-100)
[2025-05-26 22:41] LABS: Hemoglobin A1C 5.4 % (<5.7)
== END 2025-05-26 16:07 | disposition home or self-care (01) ==
LOC: NCHCN 16:06
PROVIDERS: PCP Nurse Practitioner Family; Visit Provider Nurse Practitioner Family
DX: R73.03 Prediabetes (principal); M81.0 Age-related osteoporosis without current pathological fracture
CPT/HCPCS: 80048; 82306; 83036

== ENCOUNTER 2025-08-04 08:42 | Outpatient (CLI) | payer MEDICARE, SELFPAY ==
[2025-08-04 13:14] LABS: Anion Gap 8.2 mmol/L (3-11); BUN 17 mg/dL (7-18); CO2 29.8 mmol/L (21.0-32.0); Calcium 8.9 mg/dL (8.5-10.1); Chloride 101 mmol/L (98-107); Estimated GFR 99.55 (mL/min/1.73m2); Glucose 91 mg/dL (74-106); Potassium 4.0 mmol/L (3.5-5.1); Sodium 139 mmol/L (136-145)
== END 2025-08-04 08:43 | disposition home or self-care (01) ==
LOC: LBO 08:45
PROVIDERS: PCP Nurse Practitioner Family; Visit Provider Nurse Practitioner Family
DX: R39.9 Unspecified symptoms and signs involving the genitourinary system (principal); Z86.39 Personal history of other endocrine, nutritional and metabolic disease
CPT/HCPCS: 36415; 80048; 87086

== ENCOUNTER 2025-08-07 20:06 | Outpatient (REF) | payer MEDICARE, SELFPAY | END 2025-08-07 20:07 | disposition home or self-care (01) | LOC: NCHCN 20:06 | PROVIDERS: PCP Nurse Practitioner Family; Visit Provider Nurse Practitioner Family | DX: R39.89 Other symptoms and signs involving the genitourinary system (principal) | CPT/HCPCS: 87086 ==